=== PATIENT | female | born 1955 | race Caucasian/White ===

== ENCOUNTER → 2017-03-08 | Outpatient (CLI) | payer BC ==
[~2017-03-08] MED LIST: GADOBUTROL 10 MMOL/10 ML PFS ONE
== END ==
LOC: CFH 09:26
PROVIDERS: ATTEND Radiology Radiation Oncology
DX: D33.3 Benign neoplasm of cranial nerves (principal); J32.0 Chronic maxillary sinusitis; J32.2 Chronic ethmoidal sinusitis
CPT/HCPCS: 70553; 82565; A9585

== ENCOUNTER → 2017-03-14 | Outpatient (CLI) | payer BC | END | disposition home or self-care (01) | LOC: ROC 07:53 | PROVIDERS: ATTEND Radiology Radiation Oncology | DX: Z08 Encounter for follow-up examination after completed treatment for malignant neoplasm (principal); D33.3 Benign neoplasm of cranial nerves; H91.91 Unspecified hearing loss, right ear; Z88.5 Allergy status to narcotic agent | CPT/HCPCS: 99213; G0463 ==

== ENCOUNTER → 2018-03-13 | Outpatient (CLI) | payer BC | END | disposition home or self-care (01) | LOC: CFH 08:40 | PROVIDERS: ATTEND Radiology Radiation Oncology | DX: D36.10 Benign neoplasm of peripheral nerves and autonomic nervous system, unspecified (principal); H93.8X1 Other specified disorders of right ear; I10 Essential (primary) hypertension | CPT/HCPCS: 70553; 82565; A9585 ==

== ENCOUNTER 2018-03-19 10:33 | Outpatient (CLI) | payer BC | END 2018-03-19 23:59 | disposition home or self-care (01) | LOC: ROC 10:33 | PROVIDERS: ATTEND Radiology Radiation Oncology | DX: D33.3 Benign neoplasm of cranial nerves (principal) | CPT/HCPCS: 99213; G0463 ==

== ENCOUNTER → 2018-04-30 | Outpatient (CLI) | payer BC | END | disposition home or self-care (01) | LOC: CFH 09:15 | PROVIDERS: ATTEND Nurse Practitioner Family | DX: M48.061 Spinal stenosis, lumbar region without neurogenic claudication (principal); M47.816 Spondylosis without myelopathy or radiculopathy, lumbar region | CPT/HCPCS: 72148 ==

== ENCOUNTER → 2019-10-09 | Outpatient (CLI) | payer BC ==
[~2019-10-09] MED LIST changes: -GADOBUTROL 10 MMOL/10 ML PFS ONE; +GADOTERATE 10 MMOL/20 ML VIAL ONE; +GADOTERATE 2.5 MMOL/5 ML VIAL ONE
== END | disposition home or self-care (01) ==
LOC: CFH 12:28 → EDSTATUS 12:30
PROVIDERS: ATTEND Radiology Radiation Oncology
DX: D33.3 Benign neoplasm of cranial nerves (principal)
CPT/HCPCS: 70553; A9575

== ENCOUNTER → 2019-10-19 | Outpatient (CLI) | payer BC | END | disposition home or self-care (01) | LOC: ROC 07:36 | PROVIDERS: ATTEND Radiology Radiation Oncology | DX: D33.3 Benign neoplasm of cranial nerves (principal); H91.91 Unspecified hearing loss, right ear | CPT/HCPCS: G0463-95 ==